=== PATIENT | male | born 1995 | race African-American/Black ===

== ENCOUNTER 2017-08-07 16:38 | Emergency (ER) | payer OTHER ==
[~2017-08-07] VITALS: Ht 172.7 cm; Wt 84.4 kg
[2017-08-07 17:30] VITALS: BP 166/99
--- NOTE | 2017-08-07 17:30 | PHYS DOC ---
Past History Past Medical History: No Pertinent History Past Surgical History: Other Additional Past Surgical Histo: oral surgery for dental implant Smoking: Non-smoker Alcohol Use: Rarely Drug Use: None Adult General Chief Complaint Chief Complaint: DEHYDRATION HPI HPI Patient presents to the emergency department complaining of excessive thirst. Patient was seen 4 days ago for dental implant and has been on amoxicillin prior to the surgery and a subsequent stop those medications 4 days ago but he' s noted that his mouth is dry is been drinking a lot of water. He has not really had a lot of urinary output has been changed the patient was scared by his grandmother who said this may be the start of diabetes immediately checked out. Patient denies any other symptoms of lightheaded dizziness or abdominal pain denies any numbness and tingling in his hands or feet denies any other signs or symptoms of diabetes. Patient is typical no other medications he has no other major medical problems. He's not had this expansion the past. He denies any trauma to his head, denies any prior surgery to his thyroid glands or his parathyroid glands. He denies any injury to his kidney denies any over- the-counter medications like anticholinergics and antihistamines. He also denies the use of methamphetamines Review of Systems Review of Systems Constitutional: Denies fever or chills [] Eyes: Denies change in visual acuity, redness, or eye pain [] HENT: Denies nasal congestion or sore throat [] Respiratory: Denies cough or shortness of breath [] Cardiovascular: No additional information not addressed in HPI [] GI: Denies abdominal pain, nausea, vomiting, bloody stools or diarrhea [] : Denies dysuria or hematuria [] Musculoskeletal: Denies back pain or joint pain [] Integument: Denies rash or skin lesions [] Neurologic: Denies headache, focal weakness or sensory changes [] Endocrine: Denies polyuria or polydipsia [] All other systems were reviewed and found to be within normal limits, except as documented in this note. Allergies Allergies Allergies Coded Allergies Type Severity Reaction Last Updated Verified No Known Drug Allergies 08/07/17 No Physical Exam Physical Exam Vital signs recorded on the chart at this time are stable and normal. Constitutional: Well developed, well nourished, no acute distress, non-toxic appearance. [] HENT: Normocephalic, atraumatic, bilateral external ears normal, oropharynx moist, no oral exudates, nose normal. [] Eyes: PERRLA, EOMI, conjunctiva normal, no discharge. [] Neck: Normal range of motion, no tenderness, supple, no stridor no anterior fullness no thyroid goiter or soft tissue swelling. [] Cardiovascular:Heart rate regular rhythm, no murmur [] Lungs & Thorax: Bilateral breath sounds clear to auscultation [] Skin: Warm, dry, no erythema, no rash. [] Extremities: no edema. [] Neurologic: Alert and oriented X 3, normal motor function, normal sensory function, no focal deficits noted. [] Psychologic: Affect normal, judgement normal, mood normal. [] Current Patient Data Vital Signs Vital Signs Date Time Temp Pulse Resp B/P (MAP) Pulse Ox O2 Delivery O2 Flow Rate FiO2 08/07/17 16:48 98.0 66 16 97 Room Air Lab Results Laboratory Tests Test 08/07/17 16:59 Glucose (Fingerstick) 86 mg/dL (70-99) EKG EKG [] Radiology/Procedures Radiology/Procedures [] Course & Med Decision Making Course & Med Decision Making Pertinent Labs and Imaging studies reviewed. (See chart for details) []Patient's Accu-Chek upon arrival is 86 patient indicates no peritoneal signs of hyperglycemia or diabetic complications. Patient's oropharynx is moist with normal capillary refill, normal mucous membrane moisture and no evidence of tachycardia. Patient is on no anticholinergic, sympathomimetic's, antihistamines that may be causing his symptoms. Patient will be asked to follow -up with his primary care doctor if symptoms continue I do not believe this is a issue with antidiuretic hormone insufficiency or the development of diabetes insipidus. I do not believe this is psychogenic polydipsia. Patient has no psychiatric illnesses in the past we did discuss warning about the utilization of free fluids to treat his symptoms discharge: I've spoken with the patient and/or caregivers. I've explained the patient's condition, diagnosis and treatment plan based on information available to me at this time. I've answered the patient's and/or caregivers questions and addressed any concerns. The patient and/or caregivers have a good understanding the patient's diagnosis, condition and treatment plan as can be expected at this point. Vital signs have been stabilized. The patient's condition is stable for discharge from the emergency department. The patient will pursue further outpatient evaluation with her primary care provider or other designated consulting physician as outlined in the discharge instructions. Patient and/or caregivers are agreeable to this plan of care and follow-up instructions have been explained in detail. The patient and/or caregivers have received these instructions in written format and expressed understanding of these discharge instructions. The patient and her caregivers are aware that if any significant change in condition or worsening of symptoms should prompt him to immediately return to this of the closest emergency department. If an emergent department is not readily available I would encourage him to call 911. Dragon Disclaimer Dragon Disclaimer This electronic medical record was generated, in whole or in part, using a voice recognition dictation system. Departure Departure: Impression: Primary Impression: Excessive thirst Disposition: HOME, SELF-CARE Condition: STABLE Referrals: NON,STAFF (PCP) Patient Instructions: Health Maintenance, Males Additional Instructions: discharge: I've spoken with the patient and/or caregivers. I've explained the patient's condition, diagnosis and treatment plan based on information available to me at this time. I've answered the patient's and/or caregivers questions and addressed any concerns. The patient and/or caregivers have a good understanding the patient's diagnosis, condition and treatment plan as can be expected at this point. Vital signs have been stabilized. The patient's condition is stable for discharge from the emergency department. The patient will pursue further outpatient evaluation with her primary care provider or other designated consulting physician as outlined in the discharge instructions. Patient and/or caregivers are agreeable to this plan of care and follow-up instructions have been explained in detail. The patient and/or caregivers have received these instructions in written format and expressed understanding of these discharge instructions. The patient and her caregivers are aware that if any significant change in condition or worsening of symptoms should prompt him to immediately return to this of the closest emergency department. If an emergent department is not readily available I would encourage him to call 911. JULIA CAMPOS MD Aug 07, 2017 17:30
== END 2017-08-07 17:35 | disposition home or self-care (01) ==
LOC: ER 16:38
DX: R63.1 Polydipsia (principal)
CPT/HCPCS: 82947; 99283

== ENCOUNTER 2018-05-03 14:24 | Emergency (ER) | payer OTHER ==
[~2018-05-03] VITALS: Ht 172.7 cm; Wt 94.3 kg
[2018-05-03] MEDS ORDERED: IOHEXOL 300 MG/ML 75 ML VIAL. IV ONE (14:45)
[2018-05-03] MEDS ORDERED: ONDANSETRON PF 4 MG/2 ML VIAL. IV ONE (14:45)
[2018-05-03 14:58] LABS: BASO # 0.1 x10^3/uL (0.0-0.2); BASO % 1 % (0-3); EOS % 0 % (0-3); HEMATOCRIT 44.6 % (39.0-53.0); HEMOGLOBIN 14.8 g/dL (13.0-17.5); LYMPH # 1.3 x10^3/uL (1.0-4.8); LYMPH % 11 % (24-48); MEAN CORPUSCULAR HEMOGLOBIN 27 pg (25-35); MEAN CORPUSCULAR HGB CONC 33 g/dL (31-37); MEAN CORPUSCULAR VOLUME 82 fL (79-100); MONO % 9 % (0-9); NEUT # 9.1 x10^3uL (1.8-7.7); NEUT % 79 % (31-73); PLATELET COUNT 246 x10^3/uL (140-400); RED BLOOD COUNT 5.45 x10^6/uL (4.30-5.70); RED CELL DISTRIBUTION WIDTH 12.5 % (11.5-14.5); WHITE BLOOD COUNT 11.5 x10^3/uL (4.0-11.0)
--- NOTE | 2018-05-03 15:09 | RAD ---
CT ABD PELV W/ IV CONTRST ONLY Indication: RLQ PAIN TIMES 3 DAYS, NAUSEA/VOMITING ONSET TODAY. 75MLS OMNI 300 IV CONTRAST Exposure: One or more of the following individualized dose reduction techniques were utilized for this examination: 1. Automated exposure control 2. Adjustment of the mA and/or kV according to patient size 3. Use of iterative reconstruction technique. Comparison: None are available. Contrast: Intravenous contrast was given. No oral contrast per request. FINDINGS: Lower thorax: Lung bases are clear. Liver: Unremarkable Spleen: Unremarkable Pancreas: Unremarkable Adrenals: No evidence of mass. Kidneys: No obvious mass. Urinary tracts: No hydronephrosis. Gallbladder: No calcified stone Lymph nodes: No significant enlargement Vessels: Aorta is nonaneurysmal. GI tract: The appendix is abnormally distended with thickened and hyperenhancing wall, measures up to 13 mm diameter. Appendicolith identified at the proximal appendix, measures 4 mm. Moderate inflammatory stranding within the periappendiceal fat, and fascial thickening in the right paracolic gutter. No evidence of bowel obstruction. Reproductive organs:No evidence of mass. Urinary bladder: Not adequately distended for evaluation. Peritoneum: No evidence of pneumoperitoneum. No evidence of a definite abscess but lack of oral contrast could limit detection. Abdominal wall:Unremarkable Spine: Vertebral body height and alignment are intact. Bones: No destructive process identified. External Soft Tissue: No acute findings. IMPRESSION: Exam positive for acute appendicitis. The appendix is abnormally distended and thick-walled with surrounding inflammatory type change. Appendicolith identified at the appendiceal origin. FOR INTERNAL CODING PURPOSES Critical result: Findings discussed with Dr. Gaston in the emergency room at 05/03/2018 3:02 PM. RESULT CODE: (C) Electronically signed by: Eduardo Pierre MD (05/03/2018 3:05 PM) [facility]
[2018-05-03 15:10] LABS: CREATININE 1.1 mg/dL (0.7-1.3); GFR 102.2; POTASSIUM 3.6 mmol/L (3.5-5.1); TOTAL BILIRUBIN 0.7 mg/dL (0.2-1.0); TOTAL PROTEIN 7.9 g/dL (6.4-8.2)
--- NOTE | 2018-05-03 15:21 | PHYS DOC ---
Past History Past Medical History: No Pertinent History Past Surgical History: Other Additional Past Surgical Histo: oral surgery for dental implant Smoking: Non-smoker Alcohol Use: Rarely Drug Use: None Adult General Chief Complaint Chief Complaint: ABDOMINAL PAIN HPI HPI 22-year-old otherwise healthy male presents with a three-day history of right lower quadrant pain. He states it's progressed in severity over the last couple of days. He does describe anorexia. He had some vomiting today. He tried a laxative at home and had several bowel movements but this did not help the pain. He denies any high fever. He denies any urinary symptoms such as frequency urgency or gross hematuria.[] Review of Systems Review of Systems Constitutional: Denies fever or chills [] Eyes: Denies change in visual acuity, redness, or eye pain [] HENT: Denies nasal congestion or sore throat [] Respiratory: Denies cough or shortness of breath [] Cardiovascular: No additional information not addressed in HPI [] GI: Per history of present illness[] : Denies dysuria or hematuria [] Musculoskeletal: Denies back pain or joint pain [] Integument: Denies rash or skin lesions [] Neurologic: Denies headache, focal weakness or sensory changes [] Endocrine: Denies polyuria or polydipsia [] All other systems were reviewed and found to be within normal limits, except as documented in this note. Current Medications Current Medications Current Medications Medications (Trade) Dose Ordered Sig/Cosme Start Time Stop Time Status Last Admin Dose Admin Fentanyl Citrate (Fentanyl 2ml Vial) 50 mcg 1X ONCE 05/03/18 14:45 05/03/18 14:46 DC 05/03/18 14:53 50 MCG Iohexol (Omnipaque 300 Mg/ml) 75 ml 1X ONCE 05/03/18 14:45 05/03/18 14:46 DC 05/03/18 14:45 75 ML Ondansetron HCl (Zofran) 4 mg 1X ONCE 05/03/18 14:45 05/03/18 14:46 DC 05/03/18 14:52 4 MG Allergies Allergies Allergies Coded Allergies Type Severity Reaction Last Updated Verified No Known Drug Allergies 08/07/17 No Physical Exam Physical Exam Constitutional: Well developed, well nourished, no acute distress, non-toxic appearance. [] HENT: Normocephalic, atraumatic, bilateral external ears normal, oropharynx moist, no oral exudates, nose normal. [] Eyes: PERRLA, EOMI, conjunctiva normal, no discharge. [] Neck: Normal range of motion, no tenderness, supple, no stridor. [] Cardiovascular:Heart rate regular rhythm, no murmur [] Lungs & Thorax: Bilateral breath sounds clear to auscultation [] Abdomen: Bowel sounds normal, soft, no tenderness, no masses, no pulsatile masses. [] Skin: Warm, dry, no erythema, no rash. [] Back: No tenderness, no CVA tenderness. [] Extremities: No tenderness, no cyanosis, no clubbing, ROM intact, no edema. [] Neurologic: Alert and oriented X 3, normal motor function, normal sensory function, no focal deficits noted. [] Psychologic: Affect normal, judgement normal, mood normal. [] Current Patient Data Vital Signs Vital Signs Date Time Temp Pulse Resp B/P (MAP) Pulse Ox O2 Delivery O2 Flow Rate FiO2 05/03/18 14:53 16 99 Room Air 05/03/18 14:33 99.2 108 Lab Results Laboratory Tests Test 05/03/18 14:40 White Blood Count 11.5 x10^3/uL (4.0-11.0) H Red Blood Count 5.45 x10^6/uL (4.30-5.70) Hemoglobin 14.8 g/dL (13.0-17.5) Hematocrit 44.6 % (39.0-53.0) Mean Corpuscular Volume 82 fL (79-100) Mean Corpuscular Hemoglobin 27 pg (25-35) Mean Corpuscular Hemoglobin Concent 33 g/dL (31-37) Red Cell Distribution Width 12.5 % (11.5-14.5) Platelet Count 246 x10^3/uL (140-400) Neutrophils (%) (Auto) 79 % (31-73) H Lymphocytes (%) (Auto) 11 % (24-48) L Monocytes (%) (Auto) 9 % (0-9) Eosinophils (%) (Auto) 0 % (0-3) Basophils (%) (Auto) 1 % (0-3) Neutrophils # (Auto) 9.1 x10^3uL (1.8-7.7) H Lymphocytes # (Auto) 1.3 x10^3/uL (1.0-4.8) Monocytes # (Auto) 1.0 x10^3/uL (0.0-1.1) Eosinophils # (Auto) 0.0 x10^3/uL (0.0-0.7) Basophils # (Auto) 0.1 x10^3/uL (0.0-0.2) EKG EKG [] Radiology/Procedures Radiology/Procedures [] Impressions: PROCEDURE: CT ABD PELV W/ IV CONTRST ONLY CT ABD PELV W/ IV CONTRST ONLY Indication: RLQ PAIN TIMES 3 DAYS, NAUSEA/VOMITING ONSET TODAY. 75MLS OMNI 300 IV CONTRAST Exposure: One or more of the following individualized dose reduction techniques were utilized for this examination: 1. Automated exposure control 2. Adjustment of the mA and/or kV according to patient size 3. Use of iterative reconstruction technique. Comparison: None are available. Contrast: Intravenous contrast was given. No oral contrast per request. FINDINGS: Lower thorax: Lung bases are clear. Liver: Unremarkable Spleen: Unremarkable Pancreas: Unremarkable Adrenals: No evidence of mass. Kidneys: No obvious mass. Urinary tracts: No hydronephrosis. Gallbladder: No calcified stone Lymph nodes: No significant enlargement Vessels: Aorta is nonaneurysmal. GI tract: The appendix is abnormally distended with thickened and hyperenhancing wall, measures up to 13 mm diameter. Appendicolith identified at the proximal appendix, measures 4 mm. Moderate inflammatory stranding within the periappendiceal fat, and fascial thickening in the right paracolic gutter. No evidence of bowel obstruction. Reproductive organs:No evidence of mass. Urinary bladder: Not adequately distended for evaluation. Peritoneum: No evidence of pneumoperitoneum. No evidence of a definite abscess but lack of oral contrast could limit detection. Abdominal wall:Unremarkable Spine: Vertebral body height and alignment are intact. Bones: No destructive process identified. External Soft Tissue: No acute findings. IMPRESSION: Exam positive for acute appendicitis. The appendix is abnormally distended and thick-walled with surrounding inflammatory type change. Appendicolith identified at the appendiceal origin. Course & Med Decision Making Course & Med Decision Making Pertinent Labs and Imaging studies reviewed. (See chart for details) [ED course: Evaluation reveals 22-year-old male with right lower quadrant pain and CT confirmed acute appendicitis without perforation or abscess. I spoke with Dr. Yip at [facility] who agreed to accept the patient in transfer. I also was able to talk with Dr. Sommer who will be waiting on the patient there. The patient is nothing by mouth and last ate at dinner time yesterday. He also had a dose of Zosyn 3.375 g IV.] Dragon Disclaimer Dragon Disclaimer This electronic medical record was generated, in whole or in part, using a voice recognition dictation system. Departure Departure: Impression: Primary Impression: Appendicitis, acute Disposition: XF SHT-TRM HOSP Condition: STABLE Referrals: PAMELA MONTESINOS PA-C (PCP) Problem Qualifiers Primary Impression: Appendicitis, acute Acute appendicitis type: with localized peritonitis Appendicitis gangrene presence: without gangrene Appendicitis perforation presence: without perforation Appendicitis abscess presence: without abscess Qualified Codes: K35.30 - Acute appendicitis with localized peritonitis, without perforation or gangrene SERGIO MEEK DO May 03, 2018 15:21
[2018-05-03] MEDS ORDERED: PIPERACILLIN/TAZOBACTAM 3.375 GM VIAL IV ONE (15:23)
[2018-05-03] MEDS ORDERED: IV NORMAL SALINE 50ML 50 ML ONE (15:23)
[2018-05-03 15:27] VITALS: BP 137/70
[2018-05-03] MEDS ORDERED: PIPERACILLIN/TAZOBACTAM 3.375 GM in IV NORMAL SALINE 50ML 50 ML IV ONE (15:30)
== END 2018-05-03 16:37 | disposition short-term general hospital (02) ==
LOC: ER 14:24
DX: K35.80 Unspecified acute appendicitis (principal)
CPT/HCPCS: 36415; 74177; 80053; 83690; 85025; 96365; 96375; 99285; J2405; J2543; J3010; Q9967

== ENCOUNTER 2018-08-02 14:10 | Emergency (ER) | payer OTHER ==
[~2018-08-02] VITALS: Ht 172.7 cm; Wt 94.3 kg
[2018-08-02 14:25] VITALS: BP 137/93
[2018-08-02] MEDS ORDERED: AZIT250T PO (14:29)
[2018-08-02] MEDS ORDERED: BENZ100C PO (14:29)
--- NOTE | 2018-08-02 14:42 | PHYS DOC ---
Past History Past Medical History: No Pertinent History Past Surgical History: Other Additional Past Surgical Histo: oral surgery for dental implant Smoking: Non-smoker Alcohol Use: Rarely Drug Use: None Adult General Chief Complaint Chief Complaint: FEVER HPI HPI Patient is a 23 year old male who presents with appearing of cough and congestion and subjective fever. Patient state for the last 5 days after he returned from [place] he has had cough with intermittent episodes of yellow sputum , subjective fever, headache, nasal congestion, sore throat and diarrhea that gradually getting worse. Review of Systems Review of Systems Constitutional: Reports fever Eyes: Denies change in visual acuity, redness, or eye pain [] HENT: Reports nasal congestion and sore throat Respiratory: Coarse cough Cardiovascular: No additional information not addressed in HPI [] GI: Denies abdominal pain, nausea, vomiting, bloody stools reports diarrhea [] : Denies dysuria or hematuria [] Musculoskeletal: Denies back pain or joint pain [] Integument: Denies rash or skin lesions [] Neurologic: Denies headache, focal weakness or sensory changes [] Endocrine: Denies polyuria or polydipsia [] All other systems were reviewed and found to be within normal limits, except as documented in this note. Allergies Allergies Allergies Coded Allergies Type Severity Reaction Last Updated Verified No Known Drug Allergies 08/07/17 No Physical Exam Physical Exam Constitutional: Well developed, well nourished, mild distress, non-toxic appearance, afebrile. [] HENT: Normocephalic, atraumatic, bilateral external ears normal, oropharynx moist, no oral exudates, nose normal. [] Eyes: PERRLA, EOMI, conjunctiva normal, no discharge. [] Neck: Normal range of motion, no tenderness, supple, no stridor. [] Cardiovascular:Heart rate regular rhythm, no murmur [] Lungs & Thorax: Bilateral breath sounds clear to auscultation [] Skin: Warm, dry, no erythema, no rash. [] Back: No tenderness, no CVA tenderness. [] Extremities: No tenderness, no cyanosis, no clubbing, ROM intact, no edema. [] Neurologic: Alert and oriented X 3, normal motor function, normal sensory function, no focal deficits noted. [] Psychologic: Affect normal, judgement normal, mood normal. [] EKG EKG [] Radiology/Procedures Radiology/Procedures [] Course & Med Decision Making Course & Med Decision Making Evaluation of patient in ER showed 23-year-old male patient with URI symptoms 5 days with productive cough for the last couple days. Patient was afebrile in ER. Plan to discharge patient home to diagnose of upper respiratory infection. Dragon Disclaimer Dragon Disclaimer This electronic medical record was generated, in whole or in part, using a voice recognition dictation system. Departure Departure: Impression: Primary Impression: Upper respiratory infection, acute Disposition: , SELF-CARE (8451) Condition: STABLE Referrals: PAMELA MONTESINOS PA-C (PCP) Patient Instructions: Upper Respiratory Infection, Adult Additional Instructions: Drink plenty of liquids Follow-up with your primary care physician in 3-5 days Return to ER if not getting better Scripts Azithromycin (ZITHROMAX) 250 Mg Tablet 1 PKG PO UD for infection, #1 PKG Prov: TYRONE LANDAVERDE MD 08/02/18 Benzonatate (TESSALON PERLE) 100 Mg Capsule 1 CAP PO TID for cough, #21 CAP Prov: TYRONE LANDAVERDE MD 08/02/18 TYRONE LANDAVERDE MD Aug 02, 2018 14:42
== END 2018-08-02 14:50 | disposition home or self-care (01) ==
LOC: ER 14:10
DX: J06.9 Acute upper respiratory infection, unspecified (principal)
CPT/HCPCS: 99283